=== PATIENT | female | born 1955 | race Caucasian/White ===

== ENCOUNTER 2016-08-11 15:52 | Emergency (ER) | payer BC ==
[2016-08-11] MEDS ORDERED: ONDANSETRON HCL/PF 2 MG/ML VIAL IV ONE (16:29)
[2016-08-11] MEDS ORDERED: NORMAL SALINE 1,000 ML IV ONE (16:29)
[2016-08-11] MEDS ORDERED: ONDANSETRON HCL/PF 2 MG/ML VIAL ONE (16:40)
[2016-08-11 16:48] LABS: Hemoglobin 12.9 gm/dL (12.5-16.0); Mean Cell Volume 89.4 fl (78-100); Mean Corpuscular Hemoglobin 31.2 pg (27-31); Mean Corpuscular Hgb Conc 34.9 g/dl (32-36); Neutrophil # 8.5 K/mm3 (1.3-6.0); Neutrophil % 89.2 % (42-75.0); Platelet Count 300 K/mm3 (150-450); Red Blood Count 4.14 M/mm3 (4.2-5.4); Red Cell Distribution Width 12.8 % (11.5-14.0); White Blood Count 9.6 K/mm3 (4.0-10.5)
--- NOTE | 2016-08-11 16:51 | ERNOTE ---
Medical Problem HPI - Narrative Date of Service: 08/11/16 - General Chief Complaint: Nausea/Vomiting Time Seen by Provider: 08/11/16 16:10 Source: patient Exam Limitations: no limitations - Immun/Allergies/Home Medications Immunizations: IMMUNIZATION HX Immunizations Up to Date Yes Allergies/Adverse Reactions: Allergies azithromycin [From Zithromax Z-Isreal] Allergy (Verified 08/11/16 16:00) Home Medications: HOME MEDICATIONS Prednisolone 08/11/16 [Last Taken Unknown] Promethazine HCl [Phenergan] 25 mg PO QID PRN #30 tab 08/11/16 [Last Taken Unknown] Zofran 08/11/16 [Last Taken Unknown] - History of Present History Narrative: Pt. comes in with c/o nausea and vomiting for 24 hours. Pt. was seen by her PCP yesterday and was started on solumedrol dose pack and zofran yesterday. Pt. was diagnosed with sinus infection a week ago and was started on augmentin and pt. states that those symptoms have resolved but she states that she still feels weak and shaky. Pt. took zofran last at 1400 and denies any relief. Review of Systems - Review of Systems Constitutional: Present: fatigue, malaise EYE: Present: no symptoms reported ENT: Present: no symptoms reported Respiratory: Present: no symptoms reported. Absent: shortness of breath, cough , wheezing Cardiology: Present: no symptoms reported Gastrointestinal/Abdominal: Present: nausea, vomiting. Absent: diarrhea, abdominal pain Genitourinary: Present: no symptoms reported Musculoskeletal: Present: no symptoms reported. Absent: back pain, joint pain Skin: Present: no symptoms reported Neurological: Present: no symptoms reported. Absent: anxiety, headache, dizziness/light-headedness Endocrine: Present: no symptoms reported All Other Systems: All systems neg except as marked - Patient's Past Medical History Patient History - Medical: No pertinent hx Patient History - Cardiac/Respiratory: No pertinent hx Patient History - Cancer: No Hx of Cancer Patient History - Surgical Procedures: Tubal Ligation Patient History - Other: None LMP (females 10-50): Menopausal - Social History Living Situations: home Psych History: No pertinent hx - Immunizations Immunizations Up to Date: Yes Physical Exam - Physical Exam General Appearance: Present: wd/wn, alert, no apparent distress Eye Exam: Normal inspection: bilateral, PERRL: bilateral, EOMI: bilateral Ears, Nose, Throat: Present: normal ENT inspection, hearing grossly normal, normal pharynx Neck: Present: normal inspection, nontender. Absent: lymphadenopathy (R), lymphadenopathy (L) Respiratory: Present: no respiratory distress, normal breath sounds, no accessory muscle use, chest nontender, lungs clear Cardiovascular/Chest: Present: regular rate, rhythm, no murmur, normal peripheral pulses Gastrointestinal/Abdominal: Present: normal bowel sounds, nontender, nondistended, soft, no organomegaly Back Exam: Present: normal inspection, normal range of motion, no CVA tenderness , no vertebral tenderness Extremity Exam: Present: normal inspection, non-tender, no edema, normal range of motion Neurological Exam: Present: alert, oriented, no motor/sensory deficits, other - anxiuos Skin Exam: Present: normal color, warm/dry. Absent: pallor, skin rash ED Progress - Results and Orders Patient's Lab Results:: I have reviewed the patient's lab results. - Vital Signs Patient's Vital Signs:: I have reviewed the patient's vital signs. Vital Signs: Vital Signs 08/11/16 15:56 Temperature 36.6 C Pulse Rate 102 H Respiratory 18 Rate Blood Pressure 159/86 - Progress/Reassessment Chief Complaint: Nausea/Vomiting Progress:: Improved Departure - Departure Clinical Impression: Acute gastroenteritis Disposition: Home self-care Condition: Good Instructions: Viral Gastroenteritis, Adult, [id number], Form - Return To Work Additional Instructions: Please follow up with primary provider in 2-3 days. Referrals: Melina Heath MD [Primary Care Provider] - Prescriptions: Promethazine HCl [Phenergan] 25 mg PO QID PRN #30 tab PRN Reason: nausea/vomiting
[2016-08-11 17:00] LABS: Albumin * 3.6 gm/dl (3.4-5.0); Anion Gap 15.3 mmol/L (6.8-13.8); BUN/Creatinine Ratio 18.2 (9.0-21.6); Bilirubin, Total 0.3 mg/dL (0.0-1.1); Ca. Corrected For Albumin 9.1 mg/dL (8.4-10.2); Calcium * 9.1 mg/dL (7.9-10.9); Carbon Dioxide 22.9 mmol/L (24-32.6); Potassium 4.2 mmol/L (3.4-4.6); Total Protein 7.7 gm/dL (6.2-8.2)
[2016-08-11 17:19] LABS: Urine Bilirubin Negative (NEGATIVE); Urine Blood Negative /ul (NEGATIVE); Urine Ketone Negative (NEGATIVE); Urine Nitrite Negative (NEGATIVE); Urine Protein Negative (NEGATIVE); Urine Urobilinogen Normal (NORMAL); Urine pH 7.5 pH (5.0-7.0)
[2016-08-11 17:36] LABS: Urine Appearance Clear; Urine Bacteria None Seen; Urine Color Yellow; Urine RBC None Seen /hpf (0-5); Urine WBC None Seen /hpf (0-5)
[2016-08-11] MEDS ORDERED: PROMETHAZINE HCL 25 MG in DEXTROSE 5 % IN WATER 50 ML IV ONE ×2 (17:38)
[2016-08-11 17:39] VITALS: BP 152/63
== END 2016-08-11 18:34 | disposition home or self-care (01) ==
LOC: ER 15:52
DX: K52.9 Noninfective gastroenteritis and colitis, unspecified (principal)